=== PATIENT | female | born 1980 | race Caucasian/White ===

== ENCOUNTER 2018-06-13 22:31 | Emergency (ER) | payer OTHER ==
[~2018-06-13] VITALS: Ht 149.9 cm; Wt 63.0 kg
[2018-06-13 22:37] VITALS: BP 131/94
== END 2018-06-13 23:17 | disposition left against medical advice (07) ==
LOC: ED 23:15
DX: G89.11 Acute pain due to trauma (principal); M25.561 Pain in right knee; Y04.0XXA Assault by unarmed brawl or fight, initial encounter; Y93.89 Activity, other specified; Y92.410 Unspecified street and highway as the place of occurrence of the external cause; Y99.8 Other external cause status
CPT/HCPCS: 99283